=== PATIENT | female | born 1990 | race Caucasian/White ===

== ENCOUNTER 2020-03-04 05:05 | Emergency (ER) | payer MEDICAID, SELFPAY ==
[2020-03-04] VITALS (11 sets, daily range): BP systolic 94–119; BP diastolic 33–76; PULSE 75–109; RESP 14–44; TEMP 36; O2SAT 87–100
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
[2020-03-04] MEDS: Normal Saline 1,000 ML 1000 ML IV (05:30)
[2020-03-04] MEDS: Ondansetron 4 MG/2 ML VIAL IVP (05:32)
[2020-03-04 05:34] LABS: Abs Immature Grans 0.07 10^3/uL (0.0-0.06); Absolute Basophil Count 0.03 10^3/uL (0.0-0.2); Absolute Eosinophil Count 0.04 10^3/uL (0.0-0.7); Absolute Monocyte Count 0.66 10^3/uL (0.1-0.8); Basophils % 0.2; Eosinophils % 0.3; HCT 37.5 % (36.0-46.0); HGB 13.1 g/dL (11.2-15.7); Immature Grans % 0.5; Lymphocytes % 18.8; MCH 32.5 pg (27.0-33.0); MCHC 34.9 % (32.0-36.0); MCV 93.1 fL (80-95); MPV 10.8 fL (8.0-11.0); Monocytes % 4.9; Neutrophils % 75.3; Nucleated RBC 0 %; Platelet Count 222 10^3/uL (130-400); RBC 4.03 10^6/uL (3.93-5.22); WBC 13.38 10^3/uL (4.4-10.8)
--- NOTE | 2020-03-04 05:35 | NUR.NOTE ---
Nursing Note: Pt unable to urinate- provider at bedside for FAST exam- sent directly to CT after FAST completed. test deferred. Called pt's at her request at [phone] (Lul) and updated him. Lul would like updates as they are available.
[2020-03-04] MEDS: HYDROmorphone 2 MG/ML VIAL 1 MG IVP ×2 (05:45→05:56)
[2020-03-04 05:47] LABS: Lipase 63 U/L (73-393)
[2020-03-04 05:51] LABS: PTT Activated 21.2 sec (21.0-31.4); Prothrombin Time 9.9 sec (9.3-11.0)
[2020-03-04 05:52] LABS: ALT 23 U/L (14-59); AST 15 U/L (15-37); Absolute Lymphocyte Count 2.52 10^3/uL (1.2-3.4); Absolute Neutrophil Count 10.08 10^3/uL (1.2-6.7); Alkaline Phosphatase 48 U/L (46-116); Anion Gap 10.5 mmol/L (3-11); BUN 18 mg/dL (7-18); Bilirubin, Total 0.4 mg/dL (0.2-1.0); CO2 25.5 mmol/L (21.0-32.0); CREATININE 1.01 mg/dL (0.55-1.02); Calcium 8.5 mg/dL (8.5-10.1); Chloride 101 mmol/L (98-107); Glucose 135 mg/dL (74-106); Potassium 4.2 mmol/L (3.5-5.1); Sodium 137 mmol/L (136-145); Total Protein 7.6 g/dL (6.4-8.2)
[2020-03-04] MEDS: Omnipaque 350 MG/ML 100 ML BTL IJ (05:53)
[2020-03-04] MEDS: Normal Saline - Diluent 50 ML VIAL IV (05:54)
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
[2020-03-04 06:47] LABS: Bilirubin Negative (Negative); Blood Large (Negative); Clarity Sl Cloudy (Clear); Glucose 100 mg/dL (Negative); Ketones Negative (Negative); Leukocyte Esterase Negative (Negative); Nitrite Negative (Negative); Specific Gravity 1.025 (1.005-1.025); Urobilinogen 0.2 EU/dL (Up TO 0.2); pH 8.5 (5-8)
[2020-03-04 06:55] LABS: RBC >50 HPF (0-2)
[2020-03-04 07:07] LABS: C & S Indicated? No
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
== END 2020-03-04 06:57 | disposition short-term general hospital (02) ==
LOC: ER 06:51
PROVIDERS: Emergency Provider Student in an Organized Health Care Education/Training Program; PCP Family Medicine
DX: S37.29XA Other injury of bladder, initial encounter (principal); V86.55XA Driver of 3- or 4- wheeled all-terrain vehicle (ATV) injured in nontraffic accident, initial encounter; R33.8 Other retention of urine
CPT/HCPCS: 80053; 81025; 83690; 86850; 86900; 86901; 96361; 96374; 96375; 99291; 74177; 81003; 81015; 83605; 85025; 85610; 85730; J2405; J3490

== ENCOUNTER 2020-10-23 15:15 | Outpatient (CLI) | payer MEDICAID, SELFPAY ==
--- NOTE | 2020-10-23 | DI.US_ITS ---
EXAM: US PELVIS TRANSVAGINAL CLINICAL HISTORY: IUD STRING LOCATION Z30.431. TECHNIQUE: Transabdominal and transvaginal pelvic ultrasound was performed using standard protocol. COMPARISON: US OB US 1ST TRIMESTER TRANSABD*P from 02/14/2013 FINDINGS: KIDNEYS: Kidneys are symmetric in size. No evidence of renal calculi. No evidence of hydronephrosis. No renal mass or cyst identified. UTERUS: Position: Anteverted. Size: 8.6 long by 3.1 AP by 5.8 transverse cm Endometrium: 0.2 cm. Normal for patient's menstrual status. There is an IUD which is in good position within the endometrial canal. The IUD strings are seen in the lower uterine segment/cervical region . Myometrium: Unremarkable. Cervix: Unremarkable. OVARIES: Right: 2.8 x 1.8 x 1.6 cm Cyst or mass: Small functional cysts are present. Left: 2.8 x 2.5 x 2 cm Cyst or mass: Functional cysts are present. There is a 1.5 cm dominant follicle. DOPPLER: Color: Symmetric and uniform flow to both ovaries. No hyperemia. Duplex: Normal ovarian arterial waveforms visualized. CUL-DE-SAC: Free fluid: None. Other: None. IMPRESSION: 1. Normal sonographic appearance of the kidneys. 2. Normal-appearing uterus with endometrial stripe within normal limits. 3. The IUD is in good position within the endometrial canal. The IUD strings are seen in the lower u terine segment/cervical region. 4. Unremarkable bilateral ovaries. DATA REPOSITORY:
== END 2020-10-23 15:35 ==
PROVIDERS: PCP Family Medicine; Visit Provider Registered Nurse Lactation Consultant
DX: Z30.431 Encounter for routine checking of intrauterine contraceptive device (principal)
CPT/HCPCS: 76830; 76856

== ENCOUNTER 2020-11-05 04:16 | Outpatient (CLI) | payer MEDICAID, SELFPAY ==
[2020-11-05 11:24] LABS: HCT 36.2 % (36.0-46.0); HGB 12.6 g/dL (11.2-15.7); MCH 32.4 pg (27.0-33.0); MCHC 34.8 % (32.0-36.0); MCV 93.1 fL (80-95); MPV 10.7 fL (8.0-11.0); Platelet Count 214 10^3/uL (130-400); RBC 3.89 10^6/uL (3.93-5.22); RDW 11.8 % (11.7-14.6); RDW-SD 39.9 fL; WBC 5.83 10^3/uL (4.4-10.8)
[2020-11-05 11:42] LABS: Source Nasal/Nares
[2020-11-05 18:17] LABS: COVID-19 PCR Negative (Negative)
== END 2020-11-05 04:17 | disposition home or self-care (01) ==
LOC: LBO 04:16
PROVIDERS: PCP Family Medicine; Visit Provider Obstetrics & Gynecology
DX: T83.32XA Displacement of intrauterine contraceptive device, initial encounter (principal); Z20.822 Contact with and (suspected) exposure to COVID-19; Z01.818 Encounter for other preprocedural examination; Z01.812 Encounter for preprocedural laboratory examination
CPT/HCPCS: 36415; 85027; 86850; 86900; 86901; 87635

== ENCOUNTER 2020-11-07 07:24 | Day surgery (SDC) | payer MEDICAID, SELFPAY ==
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
[2020-11-07 07:51] VITALS: BP 120/70; PULSE 95; RESP 16; TEMP 36.3; O2SAT 96
[2020-11-07] MEDS: Lactated Ringers 1,000 ML 125 ML IV (08:14)
[2020-11-07 08:49] VITALS: BMI 32.3
--- NOTE | 2020-11-07 10:00 | PAPFT_PTH ---
PATIENT: Carmen Bernal LOC: [facility] U#:[id number] AGE/SX: 29/F ROOM: RE11/07/[address]: Sabrina Mascorro DO : 1990 BED: DIS: 11/07/2020 SPEC #: [id number] RECD: 11/07/20 12:48 STATUS: LEANDRA REQ #: [id number] RONEL: 11/07/20 10:[address]: Sabrina Mascorro DEPT: [facility] Cytology RECD BY: Jo Zayas ENTERED: 11/07/20 12:48 SP TYPE: PAPFT OTHR DR: Gustavo Key MD Tissues: 1 - CX/ENDOCX FOR PAP SMEARS Procedures: PAP THIN PREP/UVM Screening Comments: [id number]
--- NOTE | 2020-11-07 10:17 | ROE_ITS ---
Date of service: 11/07/20 Time of Service: 10:17 Operative Note Operative Note DATE OF PROCEDURE: 11/07/20 PRE-OP DIAGNOSIS: Retained IUD, strings not visible. Need for cervical cancer screening with Pap smear POST-OP DIAGNOSIS: same PROCEDURE: Pap smear with hysteroscopy and removal of intrauterine device SURGEON: Sabrina Mascorro ANESTHESIA TYPE: General:No Airway Refer to Anesthesia Record ESTIMATED BLOOD LOSS: 0 PATHOLOGY: other (Pap smear) COMPLICATIONS: None Patient was transported to: same day Patient's condition: stable Indications: IUD in situ with strings not visualized Findings: Normal-appearing cervix. Normal uterus. Regular endometrial cavity. IUD in situ with strings in the endometrial cavity Procedure Description: Patient is a 29-year-old female with a history of an IUD in situ. Strings were not visualized on examination in the office and she wishes removal. Ultrasound had confirmed IUD in the endometrial cavity. She is also in need of a Pap smear. Risk benefits and alternatives of procedure have been explained to the patient in full informed was obtained. She is taken the operating suite with an IV running where she is placed in the dorsal supine position and anesthesia administered via monitored anesthesia care. She is then placed in the modified dorsolithotomy position and speculum inserted. Pap smear was collected. Attempt to grasp the IUD strings from the endocervical canal was unsuccessful. At this point she was then prepped and draped in usual sterile fashion. Weighted speculum was placed into the posterior vaginal vault and single-tooth tenaculum used to grasp the anterior lip of the cervix. Cervical os dilated the point that a 5 mm hysteroscope could be passed with ease. With instillation of normal saline the endometrial cavity was inspected. IUD was noted to be at the fundus of the uterus and strings were wrapped around the top of the IUD nonvisualized through the cervix. At this point the hysteroscope was removed. A polyp forcep was inserted into the cervical canal and the IUD was grasped and gently removed. Patient tolerated the procedure without difficulty. She woke from anesthesia with ease. She was returned to the dorsal supine position and [facility]. EBL: 0 Pathology: Pap smear Complications: None apparent
[2020-11-07 10:42] VITALS: BP 116/68; PULSE 84; RESP 16; TEMP 36.2; O2SAT 97
--- NOTE | 2020-11-07 10:56 | W.ANESPOSTOP ---
Postoperative Evaluation Date, Time and Location Date Performed: 11/07/20 Time Performed: 10:56 Patient Location: PACU Vital Signs Most Recent Imported Vital Signs: Most Recent Vital Signs Temp Pulse Resp BP Pulse Ox 36.3 C L 95 H 16 120/70 96 11/07/20 07:51 11/07/20 07:51 11/07/20 07:51 11/07/20 07:51 11/07/20 07:51 Pain Score Most Recent Pain Score: Most Recent Pain Score Pain Level 0 11/07/20 07:51 Assessment Mental Status: Awake (Alert & Oriented to Patient Baseline) Airway and Respiratory Function: Patent airway with normal (patient baseline) respiratory exam Cardiovascular Function: Hemodynamically Stable Hydration Status: Adequately Hydrated Nausea & Vomiting: No Nausea or Vomiting Pain: Pain is tolerable/mild (<5/10) Peripheral Nerve Block: Patient did not receive a nerve block
== END 2020-11-07 11:17 | disposition home or self-care (01) ==
PROVIDERS: PCP Family Medicine; Visit Provider Obstetrics & Gynecology
PROC: 0UDB8ZZ Extraction of Endometrium, Via Natural or Artificial Opening Endoscopic (ICD-10-PCS; CPT 58558; principal; 2020-11-07 09:00)
PROC: (CPT 58562; 2020-11-07 09:00)
DX: T83.32XA Displacement of intrauterine contraceptive device, initial encounter (principal); Z01.419 Encounter for gynecological examination (general) (routine) without abnormal findings
CPT/HCPCS: 58562; 81025; 88142; J1885; J2001; J2704

== ENCOUNTER 2021-01-03 03:58 | Outpatient (CLI) | payer MEDICAID, SELFPAY ==
[2021-01-03 13:08] LABS: HCG Quant, Pregnancy 45 mIU/mL (1-3)
== END 2021-01-03 03:59 | disposition home or self-care (01) ==
LOC: LBO 03:58
PROVIDERS: PCP Family Medicine; Visit Provider Obstetrics & Gynecology
DX: N91.2 Amenorrhea, unspecified (principal)
CPT/HCPCS: 36415; 84702

== ENCOUNTER 2021-01-05 11:20 | Outpatient (CLI) | payer MEDICAID, SELFPAY ==
[2021-01-05 11:57] LABS: HCG Quant, Pregnancy 142 mIU/mL (1-3)
== END 2021-01-05 11:21 | disposition home or self-care (01) ==
PROVIDERS: PCP Family Medicine; Visit Provider Obstetrics & Gynecology
DX: N91.2 Amenorrhea, unspecified (principal)
CPT/HCPCS: 36415; 84702

== ENCOUNTER 2021-08-23 02:30 | Outpatient (CLI) | payer MEDICAID, SELFPAY ==
[2021-08-23 17:26] LABS: Anion Gap 7.1 mmol/L (3-11); BUN 17 mg/dL (7-18); CO2 26.9 mmol/L (21.0-32.0); CREATININE 0.8 mg/dL (0.55-1.02); Calcium 9.3 mg/dL (8.5-10.1); Chloride 105 mmol/L (98-107); Cholesterol 176 mg/dL (<200); Glucose 90 mg/dL (74-106); HDL Cholesterol 46 mg/dL (40-60); Potassium 4.4 mmol/L (3.5-5.1); Sodium 139 mmol/L (136-145); TSH 2.56 uIU/mL (0.36-3.74)
[2021-08-23 17:43] LABS: Calculated LDL 106 mg/dL (<100); Triglyceride 121 mg/dL (<150)
[2021-08-23 18:04] LABS: FREE T4 0.79 ng/dL (0.76-1.46)
== END 2021-08-23 02:31 | disposition home or self-care (01) ==
LOC: LBO 02:30
PROVIDERS: PCP Nurse Practitioner Family; Visit Provider Nurse Practitioner Family
DX: E66.9 Obesity, unspecified (principal)
CPT/HCPCS: 80048; 80061; 83036; 84439; 84443

== ENCOUNTER 2021-08-26 01:02 | Outpatient (CLI) | payer MEDICAID, SELFPAY | END 2021-08-26 01:03 | disposition home or self-care (01) | LOC: DS 01:03 | PROVIDERS: PCP Nurse Practitioner Family; Visit Provider Dietitian, Registered ==

== ENCOUNTER → 2023-04-24 21:59 | Outpatient (CLI) | payer MEDICAID, SELFPAY ==
--- NOTE | 2023-04-24 08:33 | DI.US_ITS ---
Exam(s) US OB 1ST TRIMESTER EXAM: US OB 1ST TRIMESTER CLINICAL HISTORY: confirmation of demise, missed ab, O02.1. COMPARISON: US POCUS EXAM from 04/10/2023 TECHNIQUE: Transvaginal first trimester obstetrical ultrasound performed. FINDINGS: Sonographic images demonstrate a gestational sac with mean sac diameter corresponding to 6 weeks 4 da ys which is less than the expected size of 9 weeks 3 days.. A pole is seen however there is no cardiac activity. IMPRESSION: Findings consistent with demise. DATA REPOSITORY:
== END ==
PROVIDERS: PCP Nurse Practitioner Family; Visit Provider Obstetrics & Gynecology
DX: O02.1 Missed abortion (principal)
CPT/HCPCS: 76801

== ENCOUNTER 2023-04-27 08:29 | Day surgery (SDC) | payer MEDICAID, SELFPAY ==
[2023-04-27] VITALS (9 sets, daily range): BP systolic 81–120; BP diastolic 37–69; PULSE 70–82; RESP 14–16; TEMP 36.6–36.8; O2SAT 99–100; BMI 32.1
[2023-04-27] MEDS: Lactated Ringers 1,000 ML 125 ML IV (09:06)
--- NOTE | 2023-04-27 09:09 | W.ANESPRE ---
General Info Date of Service Date Performed: 04/27/23 Height: 5 ft 1 in Weight: 77 kg Body Mass Index (BMI): 32.1 Surgical Procedure: Operation Date: 04/27/23 09:25 Proposed Procedure Side Surgeon p Suction D&C Tennille Ruffin MD Meds Allergies and Home Medications Allergies Allergy/AdvReac Type Severity Reaction Status Date / Time No Known Allergies Allergy Unverified 04/24/23 15:31 Home Medication Medication Instructions Recorded vitamin#30 30 mg iron-10 1 cap PO DAILY 03/27/23 mg iron-folic acid 1 mg-omg3 capsule Current Visit Medications: Current Medications Generic Name Dose Route Start Last Admin Trade Name Freq PRN Reason Stop Dose Admin Ringer's Solution 1,000 mls @ 125 mls/hr 04/27/23 06:00 IV 04/27/23 23:59 INFUSION SUSANNA Doxycycline Hyclate 100 mg/ 100 mls @ 100 mls/hr 04/27/23 06:00 Sodium Chloride IVPB 04/27/23 16:00 OBIEE OBIA SOLUTION ARCHITECT SUSANNA IV Miscellaneous Supplies 1 each 04/27/23 06:00 Iv Access IV 04/27/23 23:59 DIRECTED SUSANNA Sodium Chloride 0 ml 04/27/23 06:00 Normal Saline Flush 10 Ml Syr IV 04/27/23 23:59 PRN PRN Sodium Chloride 0 ml 04/27/23 06:00 Normal Saline 10 Ml Vial IJ 04/27/23 23:59 DIRECTED PRN Sterile Water 0 ml 04/27/23 06:00 Water,Injection,Sterile 10 Ml Vial IJ 04/27/23 23:59 DIRECTED PRN PFSH Active Problems Active Problems: Problem Status Onset Code Missed O02.1 Z34.90 Medical History Medical History Gallbladder disease affecting GERD (gastroesophageal reflux disease) Obesity Surgical History Surgical History H/O bladder repair surgery (~2019) Tobacco Smoking/Tobacco Use Status: Never Passive smoking exposure: No Alcohol Alcohol Intake: never Substance Use Substance use: Never Substance use type: does not use Prental History History 5 Para 2 Hx # Term Pregnancies 2 Multiple births 0 Hx # Pregnancies 0 Ectopic pregnancies 0 AB induced 2 Hx Number of Living Children 2 AB spontaneous 0 Past Pregnancies Del. Date GA/Weeks # Preg Succ Route Wgt Sex Labor Lgth Anesthesia Location Prov Complic 09/14/13 40 No No vaginal 2579.807 g Female 3 days [facility] 03/13/14 6 No 11/30/15 40 No Yes vaginal 3486.991 g Female 10 05/13/18 6 No 04/24/23 No Tennille O'Lester Delivery Date: 09/14/13 Last Updated by: Ila Farias CNM [place], no complications, IOL for 40 weeks gestation Delivery Date: 03/13/14 Last Updated by: Ila Farias CNM ETOP no complications Delivery Date: 11/30/15 Last Updated by: Ila Farias CNM [place], [place] congenital renal reflux with repair at age 4, complicated with Gallbladder disease, IOL for convenience Delivery Date: 05/13/18 Last Updated by: Ila Farias CNM ETOP no complications Vital Signs and Lab Results Vital Signs Most Recent Vital Signs in EMR: Most Recent Vital Signs Temp Pulse Resp BP Pulse Ox 36.8 C 73 16 120/62 100 04/27/23 08:32 04/27/23 08:32 04/27/23 08:32 04/27/23 08:32 04/27/23 08:32 Lab Results 04/27/23 09:01 04/27/23 09:01 Blood Type / Crossmatch: No Data to Display Complete Blood Count: No Data to Display Complete Metabolic Panel: Est GFR (CKD-EPI 2020) Pending 04/27/23 09:01 Liver Function Panel: No Data to Display Coagulation Panel: No Data to Display Cardiac Panel: No Data to Display Arterial Blood Gas: No Data to Display Venous Blood Gas: No Data to Display Pancreas Panel: No Data to Display Thyroid Panel: No Data to Display Infectious Disease: No Data to Display Blood Cultures: No Data to Display Toxicology Panel: No Data to Display Panel: No Data to Display Anesthesia Assessment and Plan Anesthesia History Personal History: No History of Anesthesia Complications Family History: No Family History of Anesthesia Complications Exercise Tolerance Exercise Tolerance: Metabolic Equivalents>4 Cardiac & Pulmonary Exam Cardiac Exam: Normal S1/S2 Heart Sounds Pulmonary Exam: Clear Bilateral Breath Sounds Implantable Cardiac Device Does patient have a Pacemaker or an ICD?: No Airway Exam Known Difficult Airway: No Mallampati Class: 1 Mouth Opening: Normal (> 3cm) Thyromental Distance: Greater than 3 cm Neck Range of Motion: Full ROM Neck Circumference: Normal Teeth Condition: Normal Dentition ASA Classification ASA Score: ASA 2 Emergency Case?: No NPO Status NPO Status: NPO Clears >2 hours, Solids >8 hours Status Status: Confirmed (Missed AB) Anesthesia Plan Resuscitation Status: Full Code Anesthesia Technique: General Anesthesia Airway Planned: LMA Monitors Used: Standard Monitors
[2023-04-27 09:29] LABS: HCT 33.4 % (36.0-46.0); HGB 11.6 g/dL (11.2-15.7); MCH 30.7 pg (27.0-33.0); MCHC 34.7 % (32.0-36.0); MCV 88 fL (80-95); MPV 10.4 fL (8.0-11.0); Platelet Count 223 10^3/uL (130-400); RBC 3.78 10^6/uL (3.93-5.22); RDW 11.4 % (11.7-14.6); RDW-SD 36.6 fL; WBC 4.91 10^3/uL (4.4-10.8)
[2023-04-27 09:35] LABS: Anion Gap 4.6 mmol/L (3-11); BUN 12 mg/dL (7-18); CO2 26.4 mmol/L (21.0-32.0); CREATININE 0.7 mg/dL (0.55-1.02); Calcium 8.9 mg/dL (8.5-10.1); Chloride 104 mmol/L (98-107); Estimated GFR 118.51 (mL/min/1.73m2); Glucose 107 mg/dL (74-106); Potassium 3.6 mmol/L (3.5-5.1); Sodium 135 mmol/L (136-145)
[2023-04-27] MEDS: DOXYCYCLINE 100 MG in Normal Saline 100 ML IVPB (09:43)
[2023-04-27] MEDS: Bupivacaine 0.25% Pres-Free 30 ML VIAL (09:58)
--- NOTE | 2023-04-27 10:00 | POCSPONT_PTH ---
PATIENT: Carmen Bernal LOC: [facility] U#:[id number] AGE/SX: 32/F ROOM: RE04/27/[address]: Tennille Ruffin : 1990 BED: DIS: 04/27/2023 SPEC #: [id number] RECD: 04/27/23 12:32 STATUS: LEANDRA REAniket #: [id number] RONEL: 04/27/23 10:[address]: Tennille Ruffin DEPT: Surgical Specimen RECD BY: Jo Zayas ENTERED: 04/27/23 12:32 SP TYPE: ROCIO DE SANTIAGO DR: JAMES Rosales Tissues: 1 - ,SPONTANEOUS Procedures: GROSS AND MICRO LEVEL 4 Comments: [id number]
--- NOTE | 2023-04-27 10:44 | W.PM.DSUDISC ---
Date of service: 04/27/23 Time of Service: 10:44 Discharge Plan Disposition Patient Disposition: Home Condition: Good Discharge Details Reason For Visit: D&C for missed AB at 9w EGA. Attending Provider: Tennille Ruffin Primary Care Provider: Maeve Quick Home Meds and New Rx's Prescriptions: No Action PNV #[id number] 30 mg iron-10 mg iron-1 mg capsule 1 cap PO DAILY Discharge Instructions Stand Alone Forms: Anesthesia Discharge Inst., DSU Post D&C Miscarriage, Jordi Sandoval (DSU) Activity:: Activity as Tolerated Diet:: As Tolerated Discharge Orders Discharge Orders: Discharge Order (Routine); Ordered 04/27/23 Ordered By: Tennille Ruffin DS: Diagnosis Discharge Diagnosis (1) Missed : Status: Acute (2) Hx of dilation and curettage: Status: Acute
[2023-04-27] MEDS: HYDROmorphone 2 MG/ML SYR IVP ×2 (10:50→11:02)
--- NOTE | 2023-04-27 10:50 | W.PM.OP ---
Date of service: 04/27/23 Time of Service: 10:50 Operative Note Operative Note DATE OF PROCEDURE: 04/27/23 PRE-OP DIAGNOSIS: Missed AB at 9w EGA. POST-OP DIAGNOSIS: same PROCEDURE: Cervical dilation and suction curettage SURGEON: Tennille Ruffin ANESTHESIA TYPE: General LMA/ETT Refer to Anesthesia Record ESTIMATED BLOOD LOSS: 50 PATHOLOGY: other (Products of conception to pathology) COMPLICATIONS: None Patient was transported to: PACU Indications: Pt is a 32yo female with LMP 02/17/23 who was noted to have a nonviable IUP at the time of her repeat ultrasound performed on 04/23/2023. [place]-rump length is approximately 6 weeks 4 days EGA. Patient was advised regarding treatment options and consented to a D&C. Findings: Uterus approximately 9 weeks size on bimanual exam. On transabdominal and transvaginal ultrasound in the OR it was a gestational sac with a small yolk sac. Nonviable pole. At the completion of the procedure the uterine cavity is empty. Procedure Description: Patient was taken to the operating room where she was placed in the dorsal supine position and general anesthesia was administered without difficulty. IV Doxycycline was administered upon arrival in the OR. She was then placed in the dorsal lithotomy position in yellowfin stirrups in a neurologically neutral position. She was then prepped, and draped in the usual sterile fashion. Surgical timeout was performed. [place] speculum was placed into the vagina and the anterior lip of the cervix was infiltrated with 2 cc of 0.25% Marcaine without epinephrine. A single-tooth tenaculum was then used to grasp and hold the anterior lip of the cervix. A paracervical block was performed with 4 cc of quarter percent Marcaine injected into the 4 and 8:00 paracervical spaces respectively. The uterus was sounded to 9 cm. The cervix was then sequentially dilated to a maximum of 18 [place] and a 8 mm curved suction cannula was attached to suction and the level of suction tested. The cannula was inserted into the uterine cavity attached to suction and sequentially all 4 quadrants of the uterine cavity were suction curetted until minimal tissue returned. The suction cannula was then removed and a banjo curette was used to perform a gentle curetting of all 4 quadrants of the uterine cavity. Minimal tissue was returned. Transabdominal ultrasound was performed that showed presence of gestational sac. The suction cannula was changed to 9 mm curved and a suction curetting of all 4 quadrants was performed. A repeat transvaginal ultrasound was performed showing a empty uterine cavity with no evidence of gestational sac. A final suction curettage was performed using the 9 mm curved curette with minimal tissue returned. The tenaculum site was noted to be hemostatic. All instruments were removed from the vagina. Patient was awakened and transported to recovery area in stable condition. All sponge lap needle counts correct x2
--- NOTE | 2023-04-27 12:11 | W.ANESPOSTOP ---
Postoperative Evaluation Date, Time and Location Date Performed: 04/27/23 Time Performed: 12:12 Patient Location: Day Surgery Unit Vital Signs Most Recent Imported Vital Signs: Most Recent Vital Signs Temp Pulse Resp BP Pulse Ox 36.8 C 75 16 109/54 L 99 04/27/23 11:58 04/27/23 11:58 04/27/23 11:58 04/27/23 11:58 04/27/23 11:58 Pain Score Most Recent Pain Score: Most Recent Pain Score Pain Level 4 04/27/23 11:58 Assessment Mental Status: Awake (Alert & Oriented to Patient Baseline) Airway and Respiratory Function: Patent airway with normal (patient baseline) respiratory exam Cardiovascular Function: Hemodynamically Stable Hydration Status: Adequately Hydrated Nausea & Vomiting: No Nausea or Vomiting Pain: Pt. Denies Any Pain Peripheral Nerve Block: Patient did not receive a nerve block
== END 2023-04-27 12:30 | disposition home or self-care (01) ==
PROVIDERS: PCP Nurse Practitioner Family; Visit Provider Obstetrics & Gynecology Gynecology
PROC: (CPT 59841; principal; 2023-04-27 09:15)
DX: O02.1 Missed abortion (principal); Z3A.09 9 weeks gestation of pregnancy; O73.1 Retained portions of placenta and membranes, without hemorrhage
CPT/HCPCS: 59820; 36415; 80048; 85027; 86850; 86900; 86901; 88305; J0131; J1100; J1170; J1885; J2001; J2250; J2405; J2704

== ENCOUNTER 2023-07-24 10:06 | Outpatient (CLI) | payer MEDICAID, SELFPAY ==
[2023-07-24 09:55] LABS: HCG Quant, Pregnancy 8662 mIU/mL (1-3)
== END 2023-07-24 10:07 | disposition home or self-care (01) ==
LOC: LBO 10:06
PROVIDERS: PCP Nurse Practitioner Family; Visit Provider Obstetrics & Gynecology Gynecology
DX: Z32.01 Encounter for pregnancy test, result positive (principal)
CPT/HCPCS: 36415; 84702

== ENCOUNTER → 2023-07-27 09:25 | Outpatient (CLI) | payer MEDICAID, SELFPAY ==
--- NOTE | 2023-07-27 08:45 | DI.US_ITS ---
Exam(s) US OB 1ST TRIMESTER EXAM: US OB 1ST TRIMESTER CLINICAL HISTORY: unable to visualize pole in GS sac at 8weeks, Z34.90, Z32.01. COMPARISON: US POCUS EXAM from 07/24/2023 TECHNIQUE: Transabdominal Transvaginal first trimester obstetrical ultrasound performed. FINDINGS: A gestational sac is seen within the endometrium. A a sac is present. A pole is not identifie d. The mean sac diameter corresponds to 5 weeks 1 day. No small amount of fluid is identified aroun d the left adnexa.. Pelvic Measurments Uterus: 9.0 x 5.1 x 5.8 cm Rt Ovary: 3.0 x 2.0 x 1.6 cm Lt Ovary: 4.3 x 3.2 x 4.4 cm. Two adjacent ovarian cysts, the larger measuring 3.9 cm in maximal dim ension. IMPRESSION: Intrauterine gestational sac with sac diameter corresponding to 5 weeks 1 day. A yolk sac is visible . No pole is visible at this time. DATA REPOSITORY:
== END ==
PROVIDERS: PCP Nurse Practitioner Family; Visit Provider Obstetrics & Gynecology Gynecology
DX: Z34.91 Encounter for supervision of normal pregnancy, unspecified, first trimester
CPT/HCPCS: 76801

== ENCOUNTER 2023-07-30 14:42 | Outpatient (CLI) | payer MEDICAID, SELFPAY ==
[2023-07-30 14:25] LABS: HCG Quant, Pregnancy 32246 mIU/mL (1-3)
== END 2023-07-30 14:43 | disposition home or self-care (01) ==
LOC: LBO 14:43
PROVIDERS: PCP Nurse Practitioner Family; Visit Provider Obstetrics & Gynecology Gynecology
DX: O20.9 Hemorrhage in early pregnancy, unspecified (principal)
CPT/HCPCS: 36415; 84702